=== PATIENT | male | born 2000 | race African-American/Black ===

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

== ENCOUNTER 2018-08-06 14:25 | Emergency (ER) | payer MEDICAID ==
[~2018-08-06] VITALS: Ht 182.9 cm; Wt 81.6 kg
[2018-08-06 14:57] VITALS: BP 132/84
== END 2018-08-06 16:01 | disposition home or self-care (01) ==
LOC: ER 14:33
DX: S01.512A Laceration without foreign body of oral cavity, initial encounter (principal); I10 Essential (primary) hypertension; Y08.89XA Assault by other specified means, initial encounter; Y93.01 Activity, walking, marching and hiking; Y99.8 Other external cause status; Y92.89 Other specified places as the place of occurrence of the external cause
CPT/HCPCS: 41250

== ENCOUNTER 2019-03-09 07:12 | Emergency (ER) | payer MEDICAID ==
[~2019-03-09] VITALS: Ht 182.9 cm; Wt 90.7 kg
[2019-03-09 07:33] VITALS: BP 136/67
== END 2019-03-09 07:49 | disposition home or self-care (01) ==
LOC: ER 07:12
DX: R22.2 Localized swelling, mass and lump, trunk (principal); I10 Essential (primary) hypertension

== ENCOUNTER 2020-07-16 19:31 | Emergency (ER) | payer MEDICAID ==
[~2020-07-16] VITALS: Ht 182.9 cm; Wt 77.1 kg
[2020-07-16 22:30] VITALS: BP 136/51
== END 2020-07-17 00:08 | disposition home or self-care (01) ==
LOC: ER 19:31
DX: L03.031 Cellulitis of right toe (principal); I10 Essential (primary) hypertension
CPT/HCPCS: 73630

== ENCOUNTER 2020-08-30 00:01 | Inpatient (IN) | payer MEDICAID ==
[~2020-08-30] VITALS: Ht 182.9 cm
[2020-08-30 00:46] LABS: Basophils # (auto) 0 10 ^3/uL (0-0.2); Basophils % (auto) 0.3 % (0.0-2.0); Eosinophils # (auto) 0 10 ^3/uL (0-0.8); Eosinophils % (auto) 0.2 % (0.0-7.0); Hematocrit 42.4 % (41.0-53.0); Hemoglobin 14.4 g/dL (13.5-17.5); Lymphocytes # (auto) 1.4 10 ^3/uL (0.4-5.4); Lymphocytes % (auto) 23.2 % (10.0-50.0); Mean Corpuscular Hemoglobin 30.6 pg (28.0-32.0); Monocytes # (auto) 0.5 10 ^3/uL (0-1.3); Monocytes % (auto) 8.1 % (0.0-12.0); Neutrophils # (auto) 4.2 10 ^3/uL (1.6-8.6); Neutrophils % (auto) 68.2 % (37.0-80.0); Nucleated Red Blood Cells % 0.2 %; Red Blood Cells 4.71 10^6/uL (4.5-5.90); Red Cell Distribution Width 14.5 % (11.8-14.3); White Blood Cell 6.1 10^3/uL (4.4-10.8)
[2020-08-30 01:05] LABS: Urine Bacteria FEW /hpf (None Seen); Urine Blood 3+ /uL (Negative); Urine Mucus FEW (None Seen); Urine Specific Gravity 1.026 (1.001-1.035); Urine WBC 3 /hpf (0 - 3)
[2020-08-30 01:09] LABS: BUN/Creatinine Ratio 8.1; Calcium 8.9 mg/dL (8.5-10.1); Potassium 3.8 mmol/L (3.5-5.1)
[2020-08-30 01:17] LABS: Bilirubin, Total 0.4 mg/dL (0.2-1.0); Total Protein 7.4 g/dL (6.4-8.2)
[2020-08-30] MEDS ORDERED: SODIUM CHLORIDE 0.9% 1,000 ML IV ONE (04:30)
[2020-08-30] MEDS ORDERED: SODIUM CHLORIDE 0.9% 2,000 ML IV ONE (06:45)
[2020-08-30] MEDS ORDERED: TEMAZEPAM 15 MG CAP PO PRN (07:30)
[2020-08-30] MEDS ORDERED: MORPHINE SULFATE 4 MG/ML SYR/VIAL IV PRN (07:30)
[2020-08-30] MEDS ORDERED: SODIUM CHLORIDE 0.9% 1,000 ML IV SCH (07:30)
[2020-08-30] MEDS ORDERED: HYDROcodone-ACET 5/325MG TAB PO PRN (07:30)
[2020-08-30] MEDS ORDERED: NITROGLYCERIN 0.4 MG SL TAB SL PRN (07:30)
[2020-08-30] MEDS ORDERED: MORPHINE SULFATE INJECTION 2 MG/ML SYRG IV PRN (07:30)
[2020-08-30] MEDS ORDERED: ONDANSETRON HCL 4 MG/2 ML VIAL IV PRN (07:30)
[2020-08-30] MEDS ORDERED: DOCUSATE SOD 100 MG CAP PO PRN (07:30)
[2020-08-30] MEDS: FAMOTIDINE 20 MG TAB PO SCH ×2 (10:04→20:49)
[2020-08-30] MEDS: ENOXAPARIN SOD 40 MG/0.4 ML SYRINGE SC SCH (10:04)
[2020-08-30 11:30] VITALS: BP 138/91
[2020-08-30] MEDS: SODIUM BICARBONATE 50ML VIAL 50 ML in SOD CHL 0.45% 1,000 ML IV SCH ×2 (12:46→20:49)
[2020-08-30 17:17] VITALS: BP 142/96
[2020-08-30 22:00] VITALS: BP 130/68
[2020-08-31 05:00] VITALS: BP 153/76
[2020-08-31 06:41] LABS: Basophils # (auto) 0 10 ^3/uL (0-0.2); Basophils % (auto) 0.6 % (0.0-2.0); Eosinophils # (auto) 0 10 ^3/uL (0-0.8); Eosinophils % (auto) 0.5 % (0.0-7.0); Hematocrit 42.4 % (41.0-53.0); Lymphocytes # (auto) 1.4 10 ^3/uL (0.4-5.4); Lymphocytes % (auto) 25.6 % (10.0-50.0); Mean Corpuscular Hemoglobin 31.7 pg (28.0-32.0); Mean Corpuscular Hgb Conc. 35.4 g/dL (32.0-36.0); Mean Corpuscular Volume 89.4 fL (80.0-100.0); Monocytes # (auto) 0.6 10 ^3/uL (0-1.3); Monocytes % (auto) 10.2 % (0.0-12.0); Neutrophils # (auto) 3.5 10 ^3/uL (1.6-8.6); Neutrophils % (auto) 63.1 % (37.0-80.0); Red Blood Cells 4.75 10^6/uL (4.5-5.90); Red Cell Distribution Width 14.4 % (11.8-14.3); White Blood Cell 5.6 10^3/uL (4.4-10.8)
[2020-08-31 06:57] LABS: INR 1.04 (0.9-1.15)
[2020-08-31 07:27] LABS: Potassium 3.9 mmol/L (3.5-5.1)
[2020-08-31 07:39] LABS: Albumin 3.6 g/dL (3.4-5.0); BUN/Creatinine Ratio 7.5; Bilirubin, Total 0.7 mg/dL (0.2-1.0); Calcium 8.7 mg/dL (8.5-10.1); Total Protein 6.6 g/dL (6.4-8.2)
[2020-08-31] MEDS: SODIUM BICARBONATE 50ML VIAL 50 ML in SOD CHL 0.45% 1,000 ML IV SCH ×3 (08:30→20:45)
[2020-08-31 09:00] VITALS: BP 137/78
[2020-08-31] MEDS: FAMOTIDINE 20 MG TAB PO SCH ×2 (09:43→22:00)
[2020-08-31] MEDS: ENOXAPARIN SOD 40 MG/0.4 ML SYRINGE SC SCH (09:44)
[2020-08-31] MEDS: ACETAMINOPHEN 325 MG TAB PO PRN (09:52)
[2020-08-31 13:00] VITALS: BP 145/66
[2020-08-31] MEDS ORDERED: amLODIPine BESYLATE 5 MG TAB PO ONE (15:15)
[2020-08-31 17:00] VITALS: BP 133/56
[2020-08-31 20:00] VITALS: BP 126/62
[2020-08-31 21:00] VITALS: BP 126/62
[2020-09-01 05:00] VITALS: BP 133/72
[2020-09-01 07:32] LABS: Albumin 3.9 g/dL (3.4-5.0); Anion Gap 6 (5-15); Blood Urea Nitrogen 9 mg/dL (7-18); Calcium 9.3 mg/dL (8.5-10.1); Carbon Dioxide 29 mmol/L (21-32); Chloride 101 mmol/L (98-107); Glucose 82 mg/dL (74-106); Potassium 4.1 mmol/L (3.5-5.1); Sodium 136 mmol/L (136-145)
[2020-09-01 08:01] LABS: Alanine Aminotransferase 346 U/L (16-61); Alkaline Phosphatase 68 U/L (45-117); Aspartate Aminotransferase 1205 U/L (15-37); Bilirubin, Total 0.5 mg/dL (0.2-1.0); GFR African American 105 mL/min; GFR Non-African American 87 mL/min; Total Protein 7.5 g/dL (6.4-8.2)
[2020-09-01] MEDS: SODIUM BICARBONATE 50ML VIAL 50 ML in SOD CHL 0.45% 1,000 ML IV SCH ×2 (08:11→18:46)
[2020-09-01 08:57] LABS: Creatine Kinase IFCC > 20000 U/L (39-308)
[2020-09-01 09:00] VITALS: BP 140/81
[2020-09-01] MEDS: FAMOTIDINE 20 MG TAB PO SCH ×2 (10:19→22:20)
[2020-09-01] MEDS: amLODIPine BESYLATE 5 MG TAB PO SCH (10:19)
[2020-09-01] MEDS: ENOXAPARIN SOD 40 MG/0.4 ML SYRINGE SC SCH (10:20)
[2020-09-01 13:00] VITALS: BP 143/66
[2020-09-01 17:00] VITALS: BP 104/59
[2020-09-01 20:00] VITALS: BP 116/62
[2020-09-01 22:00] VITALS: BP 116/62
[2020-09-02] MEDS: SODIUM BICARBONATE 50ML VIAL 50 ML in SOD CHL 0.45% 1,000 ML IV SCH ×3 (02:30→21:12)
[2020-09-02 05:00] VITALS: BP 122/70
[2020-09-02 09:00] VITALS: BP 121/80
[2020-09-02] MEDS: FAMOTIDINE 20 MG TAB PO SCH ×2 (09:15→21:12)
[2020-09-02] MEDS: ENOXAPARIN SOD 40 MG/0.4 ML SYRINGE SC SCH (09:15)
[2020-09-02] MEDS: amLODIPine BESYLATE 5 MG TAB PO SCH (09:17)
[2020-09-02 11:02] LABS: Hepatitis B Surface Antibody Positive
[2020-09-02 11:34] LABS: Hepatitis A Total Antibody Positive
[2020-09-02 13:00] VITALS: BP 128/72
[2020-09-02 13:45] LABS: Albumin 4.3 g/dL (3.4-5.0); Calcium 9.6 mg/dL (8.5-10.1); Potassium 4.2 mmol/L (3.5-5.1)
[2020-09-02 14:23] LABS: Bilirubin, Total 0.6 mg/dL (0.2-1.0); Total Protein 8.2 g/dL (6.4-8.2)
[2020-09-02 15:19] LABS: Hepatitis A Ab IgM Negative; Hepatitis B Core IgM Negative; Hepatitis B Core Total AB Negative; Hepatitis B Surface Antigen Negative (Negative)
[2020-09-02 17:22] VITALS: BP 129/73
[2020-09-02 22:00] VITALS: BP 129/73
[2020-09-03 09:25] VITALS: BP 104/71
[2020-09-03] MEDS: FAMOTIDINE 20 MG TAB PO SCH (10:00)
[2020-09-03 10:01] LABS: Albumin 4.1 g/dL (3.4-5.0); Calcium 9.9 mg/dL (8.5-10.1); Potassium 4.1 mmol/L (3.5-5.1)
[2020-09-03] MEDS: SODIUM BICARBONATE 50ML VIAL 50 ML in SOD CHL 0.45% 1,000 ML IV SCH (10:25)
[2020-09-03] MEDS: ENOXAPARIN SOD 40 MG/0.4 ML SYRINGE SC SCH (10:25)
[2020-09-03] MEDS: amLODIPine BESYLATE 5 MG TAB PO SCH (10:25)
[2020-09-03 10:28] LABS: BUN/Creatinine Ratio 10.1; Bilirubin, Total 0.6 mg/dL (0.2-1.0)
[2020-09-03] MEDS: ACETAMINOPHEN 325 MG TAB PO PRN (11:57)
[2020-09-03 12:58] VITALS: BP 130/86
[2020-09-03 16:00] VITALS: BP 104/87
[2020-09-06 13:53] LABS: Hepatitis C Antibody Negative (Negative)
== END 2020-09-03 16:50 | disposition home or self-care (01) | DRG 351 ==
LOC: ER 00:03 → TELE 07:18 → TELE-CENTR 10:56
PROVIDERS: ADMIT Nurse Practitioner; ATTEND Nurse Practitioner
DX: M62.82 Rhabdomyolysis (principal); N17.9 Acute kidney failure, unspecified; R82.1 Myoglobinuria; R00.1 Bradycardia, unspecified; I10 Essential (primary) hypertension; Z20.822 Contact with and (suspected) exposure to COVID-19; R74.8 Abnormal levels of other serum enzymes; R31.0 Gross hematuria; Z83.3 Family history of diabetes mellitus; Z82.49 Family history of ischemic heart disease and other diseases of the circulatory system
CPT/HCPCS: 36415; 74176; 76705; 80053; 80074; 81001; 82550; 82553; 82728; 83690; 85025; 85049; 85610; 86704; 86706; 86708; 86803; 87340; 87426; 93306; 96360; 96361; 96372; G0378